=== PATIENT | male | born 1950 | race Caucasian/White ===

== ENCOUNTER → 2020-10-28 | Outpatient (CLI) | payer OTHER ==
[~2020-10-28] MED LIST: ? BP MED; AMOX500 PO; ASPI325 PO; ASPI81CH; DOXA4; ERYT.5TO OS; EZET10; HYDACE10B PO; HYDACE5325; HYDACE5325 PO; METH5 PO; MORP15ER PO; NAPR500 PO; OLME20; OXYC10ER; PENVK500 PO; SOLI5 PO; TOCO1000 PO; VITA25000; VITAMIN D PO; [UNRECOGNIZED DRUG - CODE]; [UNRECOGNIZED DRUG - OTHER] PO
== END ==
LOC: LAB 09:22 → LAB SHORT 09:22
DX: J02.9 Acute pharyngitis, unspecified (principal)
CPT/HCPCS: 87081

== ENCOUNTER 2021-03-14 18:31 | Emergency (ER) | payer OTHER ==
[~2021-03-14] VITALS: Ht 185.4 cm; Wt 95.2 kg
== END 2021-03-14 19:44 | disposition home or self-care (01) ==
LOC: ER 18:31
DX: M79.605 Pain in left leg (principal); Z79.82 Long term (current) use of aspirin
CPT/HCPCS: 93971; 99284-25

== ENCOUNTER 2021-05-01 16:48 | Emergency (ER) | payer OTHER ==
[~2021-05-01] VITALS: Ht 182.9 cm; Wt 90.7 kg
== END 2021-05-01 17:16 | disposition home or self-care (01) ==
LOC: ER 16:48
DX: M70.21 Olecranon bursitis, right elbow (principal); Z79.82 Long term (current) use of aspirin; X50.3XXA Overexertion from repetitive movements, initial encounter; Y93.H2 Activity, gardening and landscaping
CPT/HCPCS: 99283

== ENCOUNTER 2021-09-04 13:11 | Day surgery (SDC) | payer OTHER ==
[~2021-09-04] VITALS: Ht 185.4 cm; Wt 93.1 kg
[~2021-09-04 13:11] MED LIST changes: +OXYC10TA19 PO; -VITAMIN D PO; +VITAMIN D3 PO
--- NOTE | 2021-09-04 13:37 | NUR ---
PT ADMITTED TO [facility]. AGREES WITH PLANNED SURGERY. LUNG SOUNDS CLEAR.
--- NOTE | 2021-09-04 14:32 | NUR ---
REPORT GIVEN TO MALACHI HSIEH RN.
--- NOTE | 2021-09-04 18:35 | NUR ---
ARRIVAL TO UNIT PT ARRIVED TO UNIT AT 1800. [id number]. DENIES PAIN AT THIS TIME. TOLERATING PO. IV INFUSING WITH TXA PIGGYBACK. AT BEDSIDE. VIVIAN PERKINS IN PLACE LEONARDO SHARMA. PLAN IS TO WORK WITH THERAPY IN THE MORNING AND DC TOMORROW.
--- NOTE | 2021-09-05 05:18 | NUR ---
SHIFT SUMMARY POD1 R TOTAL HIP ARTH WITH DR. COREA. R HIP WITH ZACHARY PATTERSON. APPEARS TO HAVE SOME SWELLING ON THE SURGICAL REGION. PT REPORTS MODERATE PAIN AT THE BEGINNING OF SHIFT. SLOWLY IMPROVED OVERNIGHT WITH MILD PAIN. WALKS UP IN THE BATHROOM WHEN VOIDING. DENIES ISSUES WHEN VOIDING. WALKED IN THE HALLWAY X3 LAST NIGHT. PT DENIES NUMBNESS AND TINGLING SENSATION. TOLEARATING REG DIET. DENIES NAUSEA AND VOMITING. VSS. DENIES CHEST PAIN AND DIZZINESS. PT ON RA. SATURATING OVER 95%. CALL LIGHT WITHIN REACH. WILL PROVIDE REPORT TO ONCOMING NURSE.
[2021-09-05 05:58] LABS: BASOPHILS ABSOLUTE AUTO 0.02 K/mm3 (0.00-0.23); BASOPHILS PERCENT AUTO 0 % (0-2); EOSINOPHILS PERCENT AUTO 0 % (0-6); Hematocrit 42.6 % (37.0-53.0); Hemoglobin 14.6 g/dL (13.5-17.5); IMMATURE GRAN ABSOLUTE AUTO 0.08 K/mm3 (0.00-0.10); IMMATURE GRAN PERCENT AUTO 1 % (0-1); LYMPHOCYTES ABSOLUTE AUTO 0.61 K/mm3 (0.84-5.20); LYMPHOCYTES PERCENT AUTO 4 % (21-46); MONOCYTES ABSOLUTE AUTO 1.05 K/mm3 (0.16-1.47); MONOCYTES PERCENT AUTO 6 % (4-13); Mean Corpuscular HGB 31.1 pg (26.0-34.0); Mean Corpuscular HGB Conc 34.3 g/dL (31.5-36.5); Mean Corpuscular Volume 91 fL (80-100); Mean Platelet Volume 10.2 fL (9.1-12.4); NEUTROPHILS PERCENT AUTO 90 % (41-73); Platelet Count 253 K/mm3 (150-400); RDW Coefficient Variation 12.4 % (11.7-14.2); RDW Standard Deviation 41.1 fL (35.1-46.3); White Blood Cell Count 16.76 K/mm3 (4.00-11.30)
[2021-09-05 06:27] LABS: Anion Gap 6 mmol/L (6-16); Blood Urea Nitrogen 25 mg/dL (8-24); Bun/Creatinine Ratio 21.7 (12.0-20.0); CO2, Blood 26 mmol/L (21-32); Calcium, Blood 8.4 mg/dL (8.5-10.1); Chloride, Blood 104 mmol/L (98-108); Creatinine, Blood 1.15 mg/dL (0.60-1.20); Glomerular Filtration Rate >60 (60-); Glucose, Blood 116 mg/dL (70-99); Potassium, Blood 4.6 mmol/L (3.5-5.5); Sodium, Blood 136 mmol/L (136-145)
[2021-09-05] MEDS ORDERED: Percocet 5-3251 EACH PO (11:12)
[2021-09-05] MEDS ORDERED: Aspir 8181 MG PO (11:23)
--- NOTE | 2021-09-05 11:49 | NUR ---
DISCHARGE SUMMARY PT ALERT AND ORIENTED. TOLERATING REGULAR DIET. VOIDING WELL. PAIN CONTROLLED WITH TYLENOL. AMBULATING IN HALLS WITH PHYSICAL THERAPY. AQUACEL TO LEFT HIP C/D/I. CLEARED FOR DISCHARGE BY PHYSICAL THERAPY. DISCHARGE EDUCATION GIVEN ON NEW RXS, ACTIVITY, WOUND CARE, AND FOLLOW UP APPTS. IV DC'D WNL. PATIENT LEFT UNIT VIA WHEELCHAIR FOR HOME AT 1140.
== END 2021-09-05 11:46 | disposition home or self-care (01) ==
LOC: ORSCMMR 13:11 → ORD 15:00 → ORSCMMR 15:00 → SURS 17:47 → ORSCMMR 09-05 11:46
PROVIDERS: Orthopaedic Surgery
PROC: 0SRB0JA Replacement of Left Hip Joint with Synthetic Substitute, Uncemented, Open Approach (ICD-10-PCS; principal; 2021-09-04 15:00)
PROC: 8E0W0CZ Robotic Assisted Procedure of Trunk Region, Open Approach (ICD-10-PCS; principal; 2021-09-04 15:00)
DX: M16.12 Unilateral primary osteoarthritis, left hip (principal); I10 Essential (primary) hypertension; Z79.899 Other long term (current) drug therapy; Z79.82 Long term (current) use of aspirin
CPT/HCPCS: 27130; S2900; 36415; 72170; 80048; 85025; 97110; 97116; 97161; 97530; A9270; C1776; J0171; J0690; J0735; J1100; J1885; J2250; J2370; J2405; J2704; J2795; J3010; J7120

== ENCOUNTER 2024-12-30 05:43 | Day surgery (SDC) | payer OTHER ==
[~2024-12-30] VITALS: Ht 182.9 cm; Wt 90.4 kg
[2024-12-30] VITALS (18 sets, daily range): BP systolic 105–148; BP diastolic 36–93
[~2024-12-30 05:43] MED LIST changes: +ASPI81CH PO; +Aspir 8181 MG PO; +Flonase 0.05% N16 GM; +LISI5 PO; +OXYC10ER PO; +THERA-D2000 UNIT PO
[2024-12-30] MEDS ORDERED: Ropivacaine 0.5% HCl/Pf 123.125 MG,EPINEPHrine HCL 0.25 MG,Ketorolac Tromethamine 15 MG... INFIL SCH (06:15)
[2024-12-30] MEDS ORDERED: CeFAZolin Sodium 2,000 MG in NS 100 ML IV SCH ×2 (06:15→15:30)
[2024-12-30] MEDS ORDERED: Chlorhexidine Mouth Care 15 ML UDC MT SCH (06:15)
[2024-12-30] MEDS ORDERED: Lactated Ringer's 1,000 ML IV SCH ×3 (06:15→08:15)
[2024-12-30] MEDS ORDERED: OxyCODONE HCL 10 MG TABCR PO SCH (06:15)
[2024-12-30] MEDS ORDERED: Acetaminophen 500 MG Tab PO SCH ×2 (06:15→08:00)
[2024-12-30] MEDS ORDERED: Tranexamic Acid 100 ML IV SCH (06:36)
[2024-12-30] MEDS ORDERED: CeFAZolin Sodium 2,000 MG VIAL ONE (06:43)
[2024-12-30] MEDS ORDERED: Lidocaine HCl 1% 5 ML SYR INJ ONE (06:55)
[2024-12-30] MEDS ORDERED: propofoL 20 ML IV ONE ×2 (06:57→09:13)
--- NOTE | 2024-12-30 06:57 | NUR ---
History, Chart, Medications and Allergies reviewed before start of procedure. Lungs clear T/O to Auscultation. Patient confirms NPO status and agrees with scheduled surgery. Pre-Op teaching done. Pt verbalizes understanding. Patient reports completing Chlorhexadine shower X2 prior to admission to hospital.
[2024-12-30] MEDS ORDERED: propofoL 150 ML IV ONE (07:34)
[2024-12-30] MEDS ORDERED: Fluticasone 0.05% Nasal Spray PRN (07:50)
[2024-12-30] MEDS ORDERED: OxyCODONE HCL 5 MG TAB PO PRN ×2 (07:55)
[2024-12-30] MEDS ORDERED: Promethazine HCl 25 MG Tab PO PRN (07:55)
[2024-12-30] MEDS ORDERED: Bisacodyl 10 MG Supp PR PRN (07:55)
[2024-12-30] MEDS ORDERED: Prochlorperazine Edisylate 10 mg Vial IV PRN ×2 (07:55→08:50)
[2024-12-30] MEDS ORDERED: DiphenhydrAMINE HCL 25 MG Cap PO PRN (08:00)
[2024-12-30] MEDS ORDERED: Magnesium Hydroxide Conc 10 ML UDC PO PRN (08:00)
[2024-12-30] MEDS ORDERED: HYDROmorphone HCl/Pf 1MG SYR IV PRN ×2 (08:00→08:50)
[2024-12-30] MEDS ORDERED: Ondansetron HCl 2 MG / ML 2ML Vial ONE (08:06)
[2024-12-30] MEDS ORDERED: Dexamethasone Sod Phos 10 MG/ML 1ML VIAL ONE (08:06)
[2024-12-30] MEDS ORDERED: Metoclopramide HCl 5MG / ML 2ML Vial IV PRN ×2 (08:15→08:45)
[2024-12-30] MEDS ORDERED: Ondansetron HCl 2 MG / ML 2ML Vial IV PRN ×2 (08:15→08:50)
[2024-12-30] MEDS ORDERED: FentaNYL Citrate 50 MCG/ML 2 ML Injection IV PRN ×2 (08:45→08:50)
[2024-12-30] MEDS ORDERED: Albuterol 2.5 MG/3 ML VIAL INH PRN (08:50)
[2024-12-30] MEDS ORDERED: Lisinopril 5 MG Tab PO SCH (09:00)
[2024-12-30] MEDS ORDERED: Cholecalciferol 1000 Unit Tablet (=25MCG) PO SCH (09:00)
[2024-12-30] MEDS ORDERED: FentaNYL Citrate 50 MCG/ML 2 ML Injection ONE (10:00)
[2024-12-30] MEDS ORDERED: HYDROmorphone HCl/Pf 1MG SYR ONE (10:10)
--- NOTE | 2024-12-30 10:59 | NUR ---
POST-OP PATIENT TO ROOM 217 @1038, TXA AND VITALS STARTED. REPORTS 7/10 PAIN OXY 10MG ADMINISTERED. VSS, ON RA SATS 98%, HR IN THE 50S, "REPORTS BASELINE" PATIENT IS AOX4, ABLE TO MOVE ALL EXTS. REPORTS LSIGHT NUMBNESS IN FEET. BP STABLE. TOLERATING PO INTAKE. SPOUSE AT BEDSIDE. AQUACEL TO R HIP C/D/I. SCDS, POLAR PACK IN PLACE.
[2024-12-30] MEDS ORDERED: Ketorolac Tromethamine 15mg Vial IV SCH (12:00)
--- NOTE | 2024-12-30 16:51 | NUR ---
Pt. is awake and sitting in a recliner when he welcomes my visit. Pt. is pleasant. Spouse is at bedside. Pt. and family are known to this corporate tutor from the community. Facilitated a life review and listen with interest and empathy. Pt. displays evidence being motivated in his PT,, but verbalized he was waiting to be able to urinate before he could be discharged. Considered matters of hernandez and family. Prayed with Pt. Both Pt. and Spouse verbalize gratitude for the spiritual care visit.
--- NOTE | 2024-12-30 17:26 | NUR ---
SUMMARY AWAITIING PATIENT TO VOID, TOLERATING PO INTAKE, VSS, WALKED WITH THERAPY, WALKED IN [place]. MEDICATED PER EMAR FOR PAIN. REPORTS BASELINE N/T IN FEET, ABLE TO USE WALKER APPROPRIATELY. ABLE TO MAKE NEEDS KNOWN.
--- NOTE | 2024-12-30 18:41 | NUR ---
DISCHARGE PATIENT IV TAKEN OUT INTACT, ALL INSTRUCTIONS READ AND SIGNED, ICE MACHINE PACKED UP AND PATIENT IS WHEELED OUT TO PRIVATE CAR.
[2024-12-30] MEDS ORDERED: Docusate Sodium 100 MG Cap PO SCH (21:00)
[2024-12-31] MEDS ORDERED: Aspirin 81 MG Chew PO SCH (09:00)
== END 2024-12-30 18:35 | disposition home or self-care (01) ==
LOC: ORSCMMR 05:43 → ORD 07:30 → ORSCMMR 07:30 → SURS 10:34 → ORSCMMR 10:34 → SURS 13:49 → ORSCMMR 18:35
PROVIDERS: Orthopaedic Surgery
PROC: 0SR90JZ Replacement of Right Hip Joint with Synthetic Substitute, Open Approach (ICD-10-PCS; principal; 2024-12-30 07:30)
DX: M16.11 Unilateral primary osteoarthritis, right hip (principal); I10 Essential (primary) hypertension; Z79.899 Other long term (current) drug therapy; Z79.82 Long term (current) use of aspirin
CPT/HCPCS: 72170; 97110; 97116; 97162; 97530; A9270; C1776; J0171; J0690; J0735; J1100; J1171; J1885; J2405; J2704; J2795; J3010; J7120